=== PATIENT | male | born 1990 ===

== ENCOUNTER → 2016-04-16 | Outpatient (CLI) | payer OTHER ==
--- NOTE | 2016-04-16 15:51 | RADRPT ---
PROCEDURE: XR Left hip and pelvis. CLINICAL INDICATION: Left hip pain and pelvic pain. TECHNIQUE: 3 views. Frontal pelvis. Frontal and lateral left hip. COMPARISON: None. FINDINGS: There is no fracture or dislocation. The soft tissues are normal. The right hip is grossly normal. The left hip is abnormal with sclerosis and deformities superiorly in the femoral head consistent with avascular necrosis. There is no lytic lesion. There is no radiopaque foreign body. IMPRESSION: 1. Grossly normal right hip. 2. Avascular necrosis of the left femoral head. RPTAT: QQ .Faheem Aguilar MD, MD Date Time Electronically viewed and signed by .Faheem Aguilar MD, MD on 04/16/2016 15:50 .R/
== END | disposition home or self-care (01) ==
LOC: HKI 10:30
PROVIDERS: ATTEND Orthopaedic Surgery
DX: M87.152 Osteonecrosis due to drugs, left femur (principal); M25.552 Pain in left hip
CPT/HCPCS: 73502; Z7500; G0463

== ENCOUNTER 2016-10-05 18:46 | Emergency (ER) | payer OTHER ==
[~2016-10-05] VITALS: Ht 180.3 cm; Wt 73.0 kg
[2016-10-05 18:57] VITALS: Ht 180.3 cm; Wt 73.0 kg
--- NOTE | 2016-10-05 19:23 | ERD ---
ER Documentation Chief Complaint Date/Time DATE: 10/05/16 TIME: 19:20 Chief Complaint dizzy and lightheaded, ear ringing x 1 week, similar symptoms 3 weeks ago HPI 26-year-old male presents here in emergency department for complaints of dizziness, lightheadedness, ringing in the ears for one week. Patient was seen in the emergency department at the different hospital one week ago, had a full workup, blood testing done, cardiac workup done, was told to be all negative, patient was not given any medications to be symptoms. Patient have ringing in both ears, denies any ear pain. Patient's complaining of on and off lightheadedness, ROS All systems reviewed and are negative except as per history of present illness. Medications Home Meds Reported Medications [none] Unknown Strength No Conflict Check 10/05/16 Allergies Allergies: Coded Allergies: No Known Allergy (Unverified , 10/05/16) PMhx/Soc Medical and Surgical Hx: pt denies Medical Hx, pt denies Surgical Hx Hx Alcohol Use: No Hx Substance Use: No Hx Tobacco Use: No Smoking Status: Never smoker FmHx Family History: No coronary disease, No diabetes, No other Physical Exam Vitals Vital Signs Date Time Temp Pulse Resp B/P Pulse Ox O2 Delivery O2 Flow Rate FiO2 10/05/16 18:57 98.3 71 18 152/84 98 Physical Exam GENERAL: The patient is well developed and appropriate for usual state of health, in no apparent distress. CHEST: Clear to auscultation bilaterally. There are no rales, wheezes or rhonchi. HEART: Regular rate and rhythm. No murmurs, clicks, rubs or gallops. No S3 or S4. ABDOMEN: Soft, nontender and nondistended. Good bowel sounds. No rebound or guarding. No gross peritonitis. No gross organomegaly or masses. No Fajardo sign or McBurney point tenderness. BACK: No midline or flank tenderness. EXTREMITIES: Equal pulses bilaterally. There is no peripheral clubbing, cyanosis or edema. No focal swelling or erythema. Full range of motion. Grossly neurovascularly intact. NEURO: Alert and oriented. Cranial nerves 2-12 intact. Motor strength in all 4 extremities with 5/5 strength. Sensation grossly intact. Normal speech and gait. Negative Romberg sign. Negative pronator drift. Positive Bassam-Hallpike exam. SKIN: There is no apparent rash or petechia. The skin is warm and dry. HEMATOLOGIC AND LYMPHATIC: There is no evidence of excessive bruising or lymphedema. No gross cervical, axillary, or inguinal lymphadenopathy. Results 24 hrs PROCEDURE: CT Brain without contrast. CLINICAL INDICATION: Dizziness TECHNIQUE: A CT of the brain was performed on a multidetector CT scanner utilizing axial sections from the skull base through the vertex without contrast. Images were reviewed on a high-resolution PACS workstation. Exam CTDI = 44.97 mGy and the DLP = 630.20 mGy-cm. One or more of the following dose reduction techniques were used: Automated exposure control Adjustment of the mA and/or kV according to patient size. Use of iterative reconstruction technique. COMPARISON: None available FINDINGS: There is no evidence of intracranial hemorrhage, mass effect or midline shift. No abnormal intra-axial or extra-axial fluid collections are seen. The density of the brain is normal and the craft/white matter differentiation is well preserved. The osseous structures are unremarkable. Paranasal sinuses are clear. IMPRESSION: 1. No intracranial hemorrhage, mass effect or midline shift. RPTAT: HHO .Shanae Coffey MD, MD Date Time Electronically viewed and signed by .Shanae Coffey MD, MD on 10/05/2016 19:48 Procedures/MDM Medical Decision Making: Patient symptoms of dizziness and ringing in the ears nonspecific at this time, further evaluation by ENT specialist was recommended, possible Meniere's disease . Patient dizziness may be from vertigo.. There is low suspicion for neurological emergencies at this time since patients neurologic exam is normal. Patient did not have any altered level consciousness , vomiting, changes in balance or memory and did not have any head injury. Patients CT scan of the head does not show any neurological emergencies at this time. Rx: Meclizine Dispostion: Home. Stable Departure Diagnosis: Primary Impression: Dizziness Condition: Stable Patient Instructions: Inner Ear Problems: Causes of Dizziness (Vertigo) KONRAD PÉREZ NP Oct 05, 2016 19:23
--- NOTE | 2016-10-05 19:48 | RADRPT ---
PROCEDURE: CT Brain without contrast. CLINICAL INDICATION: Dizziness TECHNIQUE: A CT of the brain was performed on a multidetector CT scanner utilizing axial sections from the skull base through the vertex without contrast. Images were reviewed on a high-resolution [employer] workstation. Exam CTDI = 44.97 mGy and the DLP = 630.20 mGy-cm. One or more of the following dose reduction techniques were used: Automated exposure control Adjustment of the mA and/or kV according to patient size. Use of iterative reconstruction technique. COMPARISON: None available FINDINGS: There is no evidence of intracranial hemorrhage, mass effect or midline shift. No abnormal intra-ax ial or extra-axial fluid collections are seen. The density of the brain is normal and the craft/whit e matter differentiation is well preserved. The osseous structures are unremarkable. Paranasal sin uses are clear. IMPRESSION: 1. No intracranial hemorrhage, mass effect or midline shift. RPTAT: HHO .Shanae Coffey MD, MD Date Time Electronically viewed and signed by .Shanae Coffey MD, on 10/05/2016 19:48 .O/
[2016-10-05] MEDS ORDERED: MECL12.574 PO (20:02)
== END 2016-10-05 20:06 | disposition home or self-care (01) ==
LOC: FTE 18:46
DX: R42 Dizziness and giddiness (principal)
CPT/HCPCS: 70450; Z7502